=== PATIENT | female | born 1985 | race Caucasian/White ===

== ENCOUNTER 2017-02-02 03:20 | Emergency (ER) | payer SELFPAY ==
[2017-02-02] MEDS: IBUPROFEN 800 MG TABLET. PO (04:17)
[2017-02-02] MEDS: DIPHTH,PERTUSS(ACELL),TET TOX 0.5 ML DISP.SYRIN. VAX IM (04:19)
[2017-02-02] MEDS: CEPHALEXIN 250 MG CAPSULE. PO (05:31)
== END 2017-02-02 05:57 | disposition home or self-care (01) ==
LOC: ER 03:20
DX: S81.021A Laceration with foreign body, right knee, initial encounter (principal); S81.012A Laceration without foreign body, left knee, initial encounter; F17.200 Nicotine dependence, unspecified, uncomplicated; F12.10 Cannabis abuse, uncomplicated; Z23 Encounter for immunization; V43.52XA Car driver injured in collision with other type car in traffic accident, initial encounter; Y93.I9 Activity, other involving external motion; Y92.410 Unspecified street and highway as the place of occurrence of the external cause; Y99.8 Other external cause status
CPT/HCPCS: 72170; 73562; 90471; 90715; 99284-25